=== PATIENT | male | born 1995 | race Caucasian/White ===

== ENCOUNTER 2021-08-26 15:17 | Emergency (ER) | payer OTHER ==
[~2021-08-26] VITALS: Ht 185.4 cm; Wt 104.5 kg
[2021-08-26] MEDS ORDERED: FLUORESCEIN SODIUM 1 MG STRIP OS ONE (15:45)
[2021-08-26] MEDS ORDERED: PROPARACAINE HCL 0.5% 15 ML OPHTHALMIC SOLUTION OS ONE (15:45)
[2021-08-26] MEDS ORDERED: OFLOXACIN 0.3% 5 ML OPHTHALMIC SOLUTION OS ONE (16:00)
[2021-08-26 17:30] LABS: COVID AG,FIA SOURCE NASOPHARYNGEAL
[2021-08-26 17:32] VITALS: BP 118/75
== END 2021-08-26 17:59 | disposition home or self-care (01) ==
LOC: EMS 15:17
DX: S05.02XA Injury of conjunctiva and corneal abrasion without foreign body, left eye, initial encounter (principal); F17.210 Nicotine dependence, cigarettes, uncomplicated; Z20.822 Contact with and (suspected) exposure to COVID-19; X58.XXXA Exposure to other specified factors, initial encounter; Y93.89 Activity, other specified; Y92.89 Other specified places as the place of occurrence of the external cause; Y99.0 Civilian activity done for income or pay
CPT/HCPCS: 87426; 99284; C9803; 99283